=== PATIENT | female | born 1955 | race Caucasian/White ===

== ENCOUNTER 2020-02-01 11:28 | Emergency (ER) | payer SELFPAY ==
[2020-02-01] MEDS ORDERED: Acetaminophen/oxyCODONE 325-10 MG Tab PO ONE (11:37)
--- NOTE | 2020-02-01 11:37 | EDM.PDOC ---
ED HPI GENERAL MEDICAL PROBLEM - General Chief Complaint: Trauma Stated Complaint: LEFT ARM INJURY FELL Time Seen by Provider: 02/01/20 11:32 Source of Information: Reports: Patient History Limitations: Reports: No Limitations - History of Present Illness INITIAL COMMENTS - FREE TEXT/NARRATIVE: 64-year-old female past medical history morbid obesity, anticoagulant use presents status post fall with left shoulder pain. Patient said that she tripped going into a gas station landing on her left elbow. Does not have pain in the elbow, states that pain radiates up into her left shoulder and she has limited range of motion of the left shoulder secondary to pain. She denies hitting her head or loss of consciousness. She denies neck pain. No other symptoms. left shoulder Pain Score (Numeric/FACES): 5 - Related Data Allergies Allergy/AdvReac Type Severity Reaction Status Date / Time Penicillins Allergy Hives Verified 02/01/20 11:34 Home Meds: Home Meds Rivaroxaban [Xarelto] 20 mg PO DAILY 02/01/20 [History] oxyCODONE HCl/Acetaminophen [Percocet 5-325 mg Tablet] 1 each PO Q6H PRN #18 tablet 02/01/20 [Rx] Review of Systems - Review of Systems Review Of Systems: Comprehensive ROS is negative, except as noted in HPI. ED EXAM, GENERAL - Physical Exam Exam: See Below Exam Limited By: No Limitations General Appearance: Alert, WD/WN, No Apparent Distress Throat/Mouth: Normal Voice, No Airway Compromise Head: Atraumatic, Normocephalic Neck: Normal Inspection, Non-Tender, Full Range of Motion. 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, intact sensation) Psychiatric: Normal Affect, Normal Mood Skin Exam: Warm, Dry, Intact Course - Vital Signs Last Recorded V/S: Last Vital Signs Temp 97.9 F 02/01/20 11:36 Pulse 67 02/01/20 11:36 Resp 18 02/01/20 11:36 BP 165/67 H 11/02/20 11:36 Pulse Ox 96 02/01/20 11:36 - Orders/Labs/Meds Meds: Medications Discontinued Medications Generic Name Dose Route Start Last Admin Trade Name Freq PRN Reason Stop Dose Admin Oxycodone/Acetaminophen 1 tab 02/01/20 11:37 02/01/20 11:47 Percocet 325-10 Mg PO 02/01/20 11:38 1 tab ONETIME ONE Administration - Re-Assessments/Exams Free Text/Narrative Re-Assessment/Exam: 02/01/20 11:41 Patient presents with left shoulder pain status post fall, will get x-ray of shoulder. Will treat pain symptomatically. 02/01/20 12:41 X-rays unremarkable, will discharge patient with analgesia and primary care follow-up. Departure - Departure Time of Disposition: 12:41 Disposition: Home, Self-Care 01 Condition: Good Clinical Impression: Shoulder injury Qualifiers: Encounter type: initial encounter Laterality: left Qualified Code(s): S49.92XA - Unspecified injury of left shoulder and upper arm, initial encounter - Discharge Information Prescriptions: oxyCODONE HCl/Acetaminophen [Percocet 5-325 mg Tablet] 1 each PO Q6H PRN #18 tablet PRN Reason: Pain Referrals: PCP,None [Primary Care Provider] - Forms: ED Department Discharge Additional Instructions: The following information is given to patients seen in the emergency department who are being discharged to home. This information is to outline your options for follow-up care. We provide all patients seen in our emergency department with a follow-up referral. The need for follow-up, as well as the timing and circumstances, are variable depending upon the specifics of your emergency department visit. If you don't have a primary care physician on staff, we will provide you with a referral. We always advise you to contact your personal physician following an emergency department visit to inform them of the circumstance of the visit and for follow-up with them and/or the need for any referrals to a consulting specialist. The emergency department will also refer you to a specialist when appropriate. This referral assures that you have the opportunity for follow-up care with a specialist. All of these measure are taken in an effort to provide you with optimal care, which includes your follow-up. Under all circumstances we always encourage you to contact your private physician who remains a resource for coordinating your care. When calling for follow-up care, please make the office aware that this follow-up is from your recent emergency room visit. If for any reason you are refused follow-up, please contact the [facility] Emergency Department at and asked to speak to the emergency department charge nurse. Please follow up with your primary care physician. If you do not have a primary care physician, see below: [facility] [address] [place] [id number] [facility] [address] [place] [id number] Sepsis Event Note (ED) - Focused Exam Vital Signs: Vital Signs Temp Pulse Resp BP Pulse Ox 02/01/20 11:36 97.9 F 67 18 165/67 H 96
--- NOTE | 2020-02-01 12:23 | CR ---
Indication: Injury and pain Technique: Left shoulder 3 views Comparison: None Findings: Bones: Alignment is normal. No fractures or bone lesions. 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 Glenohumeral joint is not well visualized. Subacromial space also not well visualized. Soft tissues: Unremarkable. Impression: No sign of acute injury. Dictated by Mike Guerra MD @ Feb 01 2020 12:20PM Signed by Dr. Mike Guerra @ Feb 01 2020 12:21PM
== END 2020-02-01 13:06 | disposition home or self-care (01) ==
LOC: MW.ED 11:28
DX: S49.92XA Unspecified injury of left shoulder and upper arm, initial encounter (principal); Z88.0 Allergy status to penicillin; W01.0XXA Fall on same level from slipping, tripping and stumbling without subsequent striking against object, initial encounter
CPT/HCPCS: 73030; 99283; A9270